=== PATIENT | female | born 1990 | race Caucasian/White ===

== ENCOUNTER 2018-01-28 11:01 | Emergency (ER) | payer OTHER ==
[~2018-01-28] VITALS: Ht 142.2 cm; Wt 68.0 kg
[2018-01-28 11:03] VITALS: BP 143/98
[2018-01-28] MEDS ORDERED: IBUPROFEN 800 MG TAB ONE (11:40)
[2018-01-28] MEDS ORDERED: IBUPROFEN 800 MG TAB PO ONE (12:05)
--- NOTE | 2018-01-28 12:06 | NUR ---
LAVAGED PT'S EARS WITH WARM WATER----LARGE AMOUNT OF WAX WAS REMOVED PT TOLERATED WELL WITH MINIMAL DISCOMFORT STATED BY PT---- HEARING IMPROVED PER PT.
[2018-01-28 12:14] VITALS: BP 134/84
--- NOTE | 2018-01-28 12:15 | NUR ---
Patient discharged with v/s stable. Written and verbal after care instructions given and explained. Patient verbalized understanding. Ambulatory with steady gait. All questions addressed prior to discharge. Advised to follow up with PMD.
== END 2018-01-28 12:15 | disposition home or self-care (01) ==
LOC: MED 11:01
DX: H61.23 Impacted cerumen, bilateral (principal)
CPT/HCPCS: 99282; 99283

== ENCOUNTER 2018-10-04 12:57 | Emergency (ER) | payer OTHER ==
[~2018-10-04] VITALS: Ht 144.8 cm; Wt 73.9 kg
[2018-10-04 13:00] VITALS: BP 149/104
--- NOTE | 2018-10-04 13:05 | NUR ---
BIB SELF W/ C/O CONGESTION X1 WEEK. DENIES FEVER, N/V/D, SOB. LUNG SOUNDS CLEAR/EQUAL BILAT., NO DISTRESS NOTED . SKIN IS PINK/WARM/DRY; AAOX4 WITH EVEN AND STEADY GAIT; LUNGS CLEAR BL; HR EVEN AND REGULAR; PATIENT STATES PAIN OF 0/10 AT THIS TIME; VSS; PATIENT POSITIONED FOR COMFORT; HOB ELEVATED; BEDRAILS UP X1; BED DOWN.
--- NOTE | 2018-10-04 13:05 | NUR ---
1305---Patient admitted into bed 9.
--- NOTE | 2018-10-04 13:37 | NUR ---
PT BEING SEEN BY ER AT THIS TIME.
[2018-10-04 14:14] VITALS: BP 144/93
--- NOTE | 2018-10-04 14:16 | NUR ---
Patient discharged with v/s stable. Written and verbal after care instructions given and explained. Patient alert, oriented and verbalized understanding of instructions. Ambulatory with steady gait. All questions addressed prior to discharge. ID band removed. Patient advised to follow up with PMD. Rx of CODEIN/PROMETHAZINE SYRUP, IBUPROFEN given. Patient educated on indication of medication including possible reaction and side effects. Opportunity to ask questions provided and answered.
== END 2018-10-04 14:16 | disposition home or self-care (01) ==
LOC: MED 12:57
DX: J06.9 Acute upper respiratory infection, unspecified (principal)
CPT/HCPCS: 99283

== ENCOUNTER 2020-05-05 09:32 | Emergency (ER) | payer OTHER ==
[~2020-05-05] VITALS: Ht 148.1 cm; Wt 74.9 kg
[2020-05-05 09:39] VITALS: BP 150/99
[2020-05-05 10:54] VITALS: BP 118/74
== END 2020-05-05 10:54 | disposition home or self-care (01) ==
LOC: MED 09:32
DX: M17.11 Unilateral primary osteoarthritis, right knee (principal); Z98.890 Other specified postprocedural states
CPT/HCPCS: 73562; 99283

== ENCOUNTER 2020-07-11 08:25 | Emergency (ER) | payer OTHER ==
[~2020-07-11] VITALS: Ht 137.2 cm; Wt 74.2 kg
[2020-07-11 08:33] VITALS: BP 151/97
--- NOTE | 2020-07-11 08:40 | NUR ---
C/O R KNEE PAIN X 1 WEEK.
[2020-07-11 09:46] VITALS: BP 151/97
--- NOTE | 2020-07-11 09:46 | NUR ---
Patient discharged with v/s stable. Written and verbal after care instructions given and explained. Patient alert, oriented and verbalized understanding of instructions. Ambulatory with steady gait. All questions addressed prior to discharge. ID band removed. Patient advised to follow up with PMD. Rx of MOTRIN & NORCO given. Patient educated on indication of medication including possible reaction and side effects. Opportunity to ask questions provided and answered.
== END 2020-07-11 09:46 | disposition home or self-care (01) ==
LOC: MED 08:25
DX: M25.561 Pain in right knee (principal)
CPT/HCPCS: 99283

== ENCOUNTER 2022-12-04 09:25 | Emergency (ER) | payer OTHER ==
[~2022-12-04] VITALS: Ht 149.9 cm; Wt 70.0 kg
[2022-12-04 09:33] VITALS: BP 157/93
--- NOTE | 2022-12-04 09:40 | NUR ---
Patient ambulated back to [facility]
--- NOTE | 2022-12-04 09:58 | NUR ---
doctor is assessing patient in chair B
[2022-12-04] MEDS ORDERED: [UNRECOGNIZED DRUG - CODE] OT (10:00)
[2022-12-04] MEDS ORDERED: IBUP-2213 PO (10:00)
--- NOTE | 2022-12-04 10:11 | NUR ---
Patient discharged with v/s stable. Written and verbal after care instructions given and explained. Patient alert, oriented and verbalized understanding of instructions. Ambulatory with steady gait. All questions addressed prior to discharge. ID band removed. Patient advised to follow up with PMD. Rx of IBUPROFEN AND CARBAMIDE PEROXIDE given. Patient educated on indication of medication including possible reaction and side effects. Opportunity to ask questions provided and answered.
[2022-12-04 10:12] VITALS: BP 155/90
== END 2022-12-04 10:12 | disposition home or self-care (01) ==
LOC: MED 09:25
DX: H61.21 Impacted cerumen, right ear (principal); Z79.899 Other long term (current) drug therapy; Z79.1 Long term (current) use of non-steroidal anti-inflammatories (NSAID)
CPT/HCPCS: 99282

== ENCOUNTER 2022-12-06 17:16 | Emergency (ER) | payer OTHER ==
[~2022-12-06] VITALS: Ht 149.9 cm; Wt 71.2 kg
[~2022-12-06 17:16] MED LIST: IBUP-2213 PO; [UNRECOGNIZED DRUG - CODE] OT
[2022-12-06 17:27] VITALS: BP 149/99
--- NOTE | 2022-12-06 19:13 | NUR ---
PT TO BED 08 FOR EAR IRRIGATION
--- NOTE | 2022-12-06 19:21 | NUR ---
REPORT GIVEN TO MAGALI
== END 2022-12-06 19:45 | disposition home or self-care (01) ==
LOC: MED 17:16
DX: H61.23 Impacted cerumen, bilateral (principal); Z79.899 Other long term (current) drug therapy
CPT/HCPCS: 99282

== ENCOUNTER 2023-09-21 10:37 | Emergency (ER) | payer OTHER ==
[~2023-09-21] VITALS: Ht 123.2 cm; Wt 66.9 kg
[2023-09-21 10:41] VITALS: BP 157/97; PULSE 75; RESP 17; TEMP 97.5; O2SAT 98
[2023-09-21] MEDS: KETOROLAC 60 MG/2 ML VIAL IM ONE (11:08)
[2023-09-21] MEDS ORDERED: IBUP-2213 PO (11:15)
== END 2023-09-21 11:24 | disposition home or self-care (01) ==
LOC: MED 10:37
DX: M25.522 Pain in left elbow (principal); Z79.899 Other long term (current) drug therapy
CPT/HCPCS: 96372; 99283; J1885